=== PATIENT | male | born 1995 | race Caucasian/White ===

== ENCOUNTER 2020-01-02 02:05 | Emergency (ER) | payer OTHER ==
[~2020-01-02] VITALS: Ht 170.2 cm; Wt 72.6 kg
[2020-01-02 02:09] VITALS: BP 153/90
--- NOTE | 2020-01-02 02:13 | NUR ---
AMBULATED TO ER BED 2
--- NOTE | 2020-01-02 02:21 | NUR ---
FELICIA BOLDEN AT BEDSIDE DOING EKG
--- NOTE | 2020-01-02 02:25 | NUR ---
PT IN LOWEST POSITION AND SIDE RAIL UP X 1
--- NOTE | 2020-01-02 02:25 | NUR ---
PATIENT CAME IN TO ED WITH C/O CHEST PAIN AFTER SMOKING MARIJUANA AND METH TONIGHT, APPROXIMATELY 45 MINUTES AGO. PT STATES THIS IS THE FIRST TIME HE'S EVER DONE METH. PT APPEARS CONFUSED, SLOW TO RESPOND, PUPILS SLUGGISH. PT IS ON BED SIDE MONITOR, EKG SINUS TACHY. PT CLAIMS HE WALKED HERE BY HIMSELF BECAUSE OF SUDDEN ONSET OF CHEST PAIN. [facility] NO MED HISTORY NO MEDS
--- NOTE | 2020-01-02 02:30 | NUR ---
X RAY AT BEDSIDE
[2020-01-02 03:34] VITALS: BP 125/82
--- NOTE | 2020-01-02 03:34 | NUR ---
Patient discharged with v/s stable. Written and verbal after care instructions given and explained. Patient verbalized understanding. Ambulatory with steady gait. All questions addressed prior to discharge. Advised to follow up with PMD.
== END 2020-01-02 03:34 | disposition home or self-care (01) ==
LOC: MED 02:05
DX: F15.10 Other stimulant abuse, uncomplicated (principal); F12.90 Cannabis use, unspecified, uncomplicated; R07.9 Chest pain, unspecified
CPT/HCPCS: 71045; 93005; 99283; Q0092

== ENCOUNTER 2020-04-18 22:41 | Emergency (ER) | payer OTHER ==
[~2020-04-18] VITALS: Ht 170.2 cm; Wt 68.0 kg
[2020-04-18 22:44] VITALS: BP 130/87
--- NOTE | 2020-04-18 22:45 | NUR ---
PT JUDY BLS TO ER BED 06
[2020-04-18] MEDS ORDERED: ZIPRASIDONE MESYLATE 20 MG/ML VIAL IM ONE ×2 (23:02→23:05)
--- NOTE | 2020-04-18 23:05 | NUR ---
Dr cobian at bedside evaluating pt.
--- NOTE | 2020-04-18 23:10 | NUR ---
security contacted to help pt back onto bed.
--- NOTE | 2020-04-18 23:25 | NUR ---
24 year old male pt bib for suicidal ideation. pt family member called PD s/p being highly intoxicated and states they want to kill themselves. pt states he is depressed. pt placed on a 5150 SI hold by Officer Zainab . pt placed in suicidal precautions on bed 05. placed on gown. personal belongings removed from pt. room hazards removed. vss. awaiting MSE. no other s/sx noted. pmhx: depression. anthonya
[2020-04-19 00:07] LABS: BASOPHILS % (AUTO) 0.2 % (0.0-2.0); EOSINOPHILS # (AUTO) 0.2 K/uL (0-0.4); EOSINOPHILS % (AUTO) 1.9 % (0.0-4.0); HEMATOCRIT 45.8 % (36-52); HEMOGLOBIN 15.5 g/dL (12.0-18.0); LYMPHOCYTES # (AUTO) 3.4 K/uL (2.0-11.5); LYMPHOCYTES % (AUTO) 39.4 % (20.5-51.1); MEAN CORPUSCULAR HEMOGLOBIN 31 pg (27-31); MEAN CORPUSCULAR HGB CONC 34 g/dL (33-37); MEAN CORPUSCULAR VOLUME 91.5 fL (80-94); MONOCYTES # (AUTO) 0.4 K/uL (0.8-1.0); NEUTROPHILS # (AUTO) 4.6 K/uL (1.8-7.7); NEUTROPHILS % (AUTO) 53.5 % (42.2-75.2); PLATELET COUNT (AUTO) 212 K/uL (140-450); RED CELL DISTRIBUTION WIDTH 13.3 % (11.6-13.7); WHITE BLOOD COUNT (AUTO) 8.7 K/uL (4.8-10.8)
[2020-04-19 00:46] LABS: ALBUMIN 4.2 g/dL (3.4-5.0); ASPARTATE AMINOTRANSFERASE 30 U/L (15-37); CARBON DIOXIDE 23.4 mmol/L (21-32); CHLORIDE 106 mmol/L (98-107); CREATININE 1.1 mg/dL (0.6-1.3); GFR ARICAN-AMERICAN 107 mL/min (>90); GLUCOSE 100 mg/dL (74-106); POTASSIUM 3.4 mmol/L (3.5-5.1); SODIUM SERUM 144 mmol/L (136-145); TOTAL BILIRUBIN 0.3 mg/dL (0.0-1.0); UREA NITROGEN, BLOOD 11 mg/dL (7-18)
--- NOTE | 2020-04-19 00:50 | NUR ---
pt now asleep in bed. visible chest rise and fall. gcs 13.
[2020-04-19 00:54] LABS: ACETAMINOPHEN < 0.5 ug/ml (10-30); SALICYLATE < 2.8 mg/dL (2.8-20.0)
[2020-04-19 01:11] LABS: APPEARANCE,URINE CLEAR (CLEAR); BILIRUBIN,URINE NEGATIVE (NEGATIVE); BLOOD, URINE NEGATIVE (NEGATIVE); COLOR,URINE YELLOW (YELLOW); LEUKOCYTE ESTERASE ,URINE NEGATIVE (NEGATIVE); NITRITE, URINE NEGATIVE (NEGATIVE); UGLUCOSE NEGATIVE (NEGATIVE)
[2020-04-19 01:18] LABS: BARBITURATE, URINE NEGATIVE ng/ml (NEG <=200); BENZODIAZEPINE, URINE NEGATIVE ng/mL (NEG <=200); CANNABINOID, URINE POSITIVE ng/mL (NEG <=50); COCAINE, URINE NEGATIVE ng/mL (NEG <=300); OPIATE, URINE NEGATIVE ng/mL (NEG <=2000); PHENCYCLIDINE SCREEN,URINE NEGATIVE ng/mL (NEG <=25)
--- NOTE | 2020-04-19 01:59 | NUR ---
laying in bed with eyes closed. visible chest rise and fall. arousable to light pain
--- NOTE | 2020-04-19 02:50 | NUR ---
asleep in bed. visible chest rise and fall. arousable to light pain. vss. sitter at bedside. suicide precautions in place.
--- NOTE | 2020-04-19 04:00 | NUR ---
no changes at this time. pt asleep. arousable with light pain.
--- NOTE | 2020-04-19 06:59 | NUR ---
received report from roxann hwang . pt comfortable in bed side rails up x1 and lock at lowest position. with stable v/s.
--- NOTE | 2020-04-19 08:02 | NUR ---
pt was offered food but opted to go restroom .
--- NOTE | 2020-04-19 08:03 | NUR ---
pt ambulated to restroom upset stating he wants to go home using fouls words.
--- NOTE | 2020-04-19 08:21 | NUR ---
pt on telepsych in bed .
--- NOTE | 2020-04-19 08:27 | NUR ---
pt sitted in bed roxann jansen spoke to him regarding importance of telepsych , pt drink some orange juice refuse to eat breakfast at this time.pt with stable v/s.
--- NOTE | 2020-04-19 09:38 | NUR ---
pt comfortable in bed sleeping eyes close ,notable chest expansion .side rails up x1 and lock at lowest position.
--- NOTE | 2020-04-19 10:20 | NUR ---
suicide admission assessment was not filled up by night nurse roxann jansen informed and aware .
--- NOTE | 2020-04-19 10:30 | NUR ---
Patient discharged with v/s stable. Written and verbal after care instructions given and explained. Patient verbalized understanding. Ambulatory with steady gait. All questions addressed prior to discharge. Advised to follow up with PMD.Called mother for him to be pickup pt walk up to front lobby.
[2020-04-19 10:35] VITALS: BP 108/53
== END 2020-04-19 10:30 | disposition home or self-care (01) ==
LOC: MED 22:41
DX: R45.851 Suicidal ideations (principal); F10.129 Alcohol abuse with intoxication, unspecified; Y90.9 Presence of alcohol in blood, level not specified
CPT/HCPCS: 36415; 80053; 80305; 81003; 85025; 96372; 99285; G0480; G0482; J3486

== ENCOUNTER 2021-01-21 21:30 | Emergency (ER) | payer OTHER ==
[~2021-01-21] VITALS: Ht 175.3 cm; Wt 81.6 kg
[2021-01-21 21:33] VITALS: BP 106/63
[2021-01-21 21:58] VITALS: BP 106/63
== END 2021-01-21 21:59 ==
LOC: MED 21:30
DX: S61.412A Laceration without foreign body of left hand, initial encounter (principal); Z02.89 Encounter for other administrative examinations; W22.01XA Walked into wall, initial encounter; Y93.89 Activity, other specified; Y92.89 Other specified places as the place of occurrence of the external cause; Y99.8 Other external cause status
CPT/HCPCS: 99283